=== PATIENT | female | born 1965 | race Caucasian/White ===

== ENCOUNTER 2020-09-06 11:19 | Emergency (ER) | payer MEDICARE, OTHER ==
[~2020-09-06 11:19] MED LIST: HURRICAINE MM; PENICILLIN V P500 MG PO
[2020-09-06 12:28] LABS: HEMOGLOBIN 12.7 gm/dl (12.3-15.3); RED BLOOD COUNT 4.42 M/UL (4.00-5.10); WHITE BLOOD COUNT 11.2 K/UL (4.5-11.0)
[2020-09-06 13:30] LABS: BUN/CREATININE RATIO 16 (0-10)
[2020-09-06] MEDS ORDERED: CEPHALEXIN500 M1 PO (15:43)
[2020-09-06] MEDS ORDERED: FLAGYL500 MG PO (15:43)
[2020-09-06] MEDS ORDERED: ONDANSETRON ODT4 MG SL (15:43)
== END 2020-09-06 16:00 | disposition home or self-care (01) ==
LOC: ER1 11:19
PROVIDERS: Physician Assistant
DX: N39.0 Urinary tract infection, site not specified (principal); K21.9 Gastro-esophageal reflux disease without esophagitis; F17.200 Nicotine dependence, unspecified, uncomplicated; Z79.899 Other long term (current) drug therapy; Z88.2 Allergy status to sulfonamides; Z88.8 Allergy status to other drugs, medicaments and biological substances
CPT/HCPCS: 80053; 81001; 83690; 85025; 96374; 96375; 99284; J2270; J2405; J7030; Q9967

== ENCOUNTER → 2021-08-04 | Outpatient (CLI) | payer MEDICARE, OTHER ==
[~2021-08-04] MED LIST changes: +CEPHALEXIN500 M1 PO; +FLAGYL500 MG PO; +ONDANSETRON ODT4 MG SL
== END ==
LOC: HEART CORB 09:00
DX: R07.2 Precordial pain (principal); R06.02 Shortness of breath; F17.210 Nicotine dependence, cigarettes, uncomplicated
CPT/HCPCS: 78452; A9502; J2785

== ENCOUNTER 2021-09-12 15:28 | Emergency (ER) | payer MEDICARE, OTHER ==
[2021-09-12] MEDS ORDERED: 12 HOUR DECONG120 M1 PO (18:36)
[2021-09-12] MEDS ORDERED: ZOFRAN 4 MG TAB4 MG PO (18:36)
[2021-09-12] MEDS ORDERED: FLONASE 0.05% N16 GM (18:36)
[2021-09-12] MEDS ORDERED: MEDROL DOSEPAK 24 MG PO (18:36)
== END 2021-09-12 19:50 | disposition home or self-care (01) ==
LOC: ER1 15:28
DX: J06.9 Acute upper respiratory infection, unspecified (principal); J44.9 Chronic obstructive pulmonary disease, unspecified; Z20.822 Contact with and (suspected) exposure to COVID-19; Z88.8 Allergy status to other drugs, medicaments and biological substances
CPT/HCPCS: 0240U; 99283